=== PATIENT | male | born 1955 | race Caucasian/White ===

== ENCOUNTER 2020-02-06 12:18 | Inpatient (IN) | payer OTHER ==
[~2020-02-06] VITALS: Ht 175.3 cm; Wt 142.5 kg
[2020-02-06 12:29] VITALS: Ht 175.3 cm; Wt 142.5 kg
[2020-02-06 14:09] LABS: BASOPHIL % 0.5 % (0-2); PLATELET COUNT 316 x10^3mcL (130-400); RED CELL DISTRIBUTION WIDTH 14.7 % (11.5-14.5)
[2020-02-06 14:11] LABS: CALCIUM 8.6 mg/dL (8.5-10.1); CARBON DIOXIDE 31.7 mmol/L (21-32); CHLORIDE SERUM 105 mmol/L (98-107); GFR1 > 60 mL/min; GLUCOSE SERUM 125 mg/dL (74-106); POTASSIUM SERUM 3.7 mmol/L (3.5-5.1); SODIUM SERUM 141 mmol/L (136-145)
[2020-02-06 14:16] LABS: ALBUMIN 3.6 g/dL (3.4-5.0); ALKALINE PHOSPHATASE 105 U/L (46-116); ALT/SGPT 45 U/L (16-63); AST/SGOT 32 U/L (15-37); BILIRUBIN TOTAL 0.5 mg/dL (0.20-1.00); TOTAL PROTEIN, SERUM 7.8 g/dL (6.4-8.2)
[2020-02-06] MEDS ORDERED: GRALISE600 MG (14:44)
[2020-02-06] MEDS ORDERED: BACLOFEN5 MG (14:44)
[2020-02-06 16:13] VITALS: BP 126/68
[2020-02-06 20:00] VITALS: BP 122/59
[2020-02-07 04:13] LABS: microscopic required? NO
[2020-02-07 04:21] LABS: UA SPECIFIC GRAVITY >=1.030 (1.005-1.035); urine erythrocyte NEGATIVE (NEGATIVE)
[2020-02-07 04:30] LABS: AMPHETAMINE QUAL UR POSITIVE (See below)
[2020-02-07 05:38] VITALS: BP 162/63
[2020-02-07 06:27] LABS: BASOPHIL % 0.5 % (0-2); PLATELET COUNT 285 x10^3mcL (130-400)
[2020-02-07 06:47] LABS: CALCIUM 8.5 mg/dL (8.5-10.1); CARBON DIOXIDE 33.1 mmol/L (21-32); CHLORIDE SERUM 106 mmol/L (98-107); GFR1 > 60 mL/min; GLUCOSE SERUM 109 mg/dL (74-106); PHOSPHOROUS 3.7 mg/dL (2.5-4.9); POTASSIUM SERUM 4.3 mmol/L (3.5-5.1); SODIUM SERUM 142 mmol/L (136-145)
[2020-02-07 07:04] LABS: RED CELL DISTRIBUTION WIDTH 14.7 % (11.5-14.5)
[2020-02-07 08:07] VITALS: BP 114/64
[2020-02-07 13:07] VITALS: BP 126/56
[2020-02-07] MEDS ORDERED: LEVAQUIN750 MG PO (14:18)
[2020-02-07 15:02] VITALS: BP 126/56
== END 2020-02-07 15:37 | disposition home or self-care (01) | DRG 197 ==
LOC: ED 12:18 → MU 15:03
PROVIDERS: Emergency Medicine; ADMIT Internal Medicine
DX: I82.402 Acute embolism and thrombosis of unspecified deep veins of left lower extremity (principal); J18.9 Pneumonia, unspecified organism; I10 Essential (primary) hypertension; F17.210 Nicotine dependence, cigarettes, uncomplicated; J98.11 Atelectasis; Z98.41 Cataract extraction status, right eye; Z98.1 Arthrodesis status; Z23 Encounter for immunization; Z79.899 Other long term (current) drug therapy
CPT/HCPCS: 85378; 90658; G0378; J1650; J2405; Q9967